=== PATIENT | female | born 1955 | race African-American/Black ===

== ENCOUNTER 2017-08-09 23:00 | Emergency (ER) | END 2017-08-10 01:19 | disposition home or self-care (01) ==

== ENCOUNTER 2017-10-25 22:38 | Emergency (ER) | END 2017-10-26 00:13 | disposition home or self-care (01) ==

== ENCOUNTER 2017-11-24 13:13 | Emergency (ER) | END 2017-11-24 13:58 | disposition home or self-care (01) ==

== ENCOUNTER 2018-01-17 14:24 | Emergency (ER) | END 2018-01-17 16:35 | disposition home or self-care (01) ==

== ENCOUNTER 2018-02-09 15:03 | Emergency (ER) | END 2018-02-09 16:56 | disposition home or self-care (01) ==

== ENCOUNTER 2018-04-30 01:14 | Emergency (ER) | payer OTHER ==
[~2018-04-30] VITALS: Wt 49.4 kg
[~2018-04-30 01:14] MED LIST: ASPI-817 PO; CEPH-443 PO; CLOT10TR11 ORAL; DOCU-144 PO; HC30CR25 TOP; IBUP-1561 PO; NAPR-985 PO; NORVIR; ONDA4TAB14 PO; PRAV40TA76 PO; [UNRECOGNIZED DRUG - OTHER]; [UNRECOGNIZED DRUG - OTHER]
[2018-04-30 01:20] VITALS: BP 114/73; PULSE 84; RESP 18
[2018-04-30] MEDS ORDERED: IBUP-1542 PO (03:52)
--- NOTE | 2018-05-08 00:08 | ERD ---
ER Documentation Chief Complaint Chief Complaint BODY ACHES, DIARRHEA X'S 3 DAYS HPI This is a 63-year-old antibiotics diarrhea for 3 days. Denies fevers or chills. Diarrhea was nonbloody 4-5 episodes of watery in nature. She also complains of diffuse body aches. Denies fevers or chills. Denies any other current complaints. Denies sick contacts. ROS All systems reviewed and are negative except as per history of present illness. Medications Home Meds Active Scripts Ibuprofen* (Motrin*) 600 Mg Tab, 600 MG PO Q6, #30 TAB Prov:RANDAL OSORIO 04/30/18 Naproxen* (Naprosyn*) 500 Mg Tablet, 500 MG PO BID PRN for PAIN AND/OR INFLAMMATION, #30 TAB Prov:REED LIN APNS 02/09/18 Cephalexin* (Keflex*) 500 Mg Capsule, 500 MG PO QID for 7 Days, CAP Prov:JOSE ANGEL SOUSA MD 01/17/18 Hydrocortisone* Topical (Hydrocortisone* Topical) 2.5%-28.3 Gm Cream..g., 1 APPLIC TOP BID for 7 Days, #1 TUB Prov:JOSE ANGEL SOUSA MD 11/24/17 Ibuprofen* (Motrin*) 400 Mg Tab, 400 MG PO Q6, #30 TAB Prov:RANDAL SHERMAN PA-C 10/25/17 Hydrocortisone* Topical (Hydrocortisone* Topical) 2.5%-28.3 Gm Cream..g., 1 APPLIC TOP BID, #1 TUB Prov:RANDAL SHERMAN PA-C 10/25/17 Ondansetron (Ondansetron Odt) 4 Mg Tab.rapdis, 4 MG PO Q6H PRN for NAUSEA AND/OR VOMITING, #10 TAB Prov:RANDAL OSORIO 08/29/17 Docusate Sodium* (Colace*) 100 Mg Capsule, 100 MG PO TID, #30 CAP Prov:RANDAL OSORIO 08/29/17 Clotrimazole* (Mycelex Pita*) 10 Mg Troc, 10 MG ORAL 5 TIMES DAILY for 10 Days, #40 LOI Prov:EDY JOYCE 08/10/17 Reported Medications [Trivacay] No Conflict Check 12/03/14 [Norvir] No Conflict Check 12/03/14 [Presiata] No Conflict Check 12/03/14 Aspirin* (Aspirin* EC) 81 Mg Tablet.dr, 81 MG PO DAILY, TAB 12/03/14 Pravastatin Sodium* (Pravastatin Sodium*) 40 Mg Tablet, 40 MG PO HS, TAB 12/03/14 Allergies Allergies: Coded Allergies: codeine (Verified Adverse Reaction, Intermediate, RESTLESSNESS FEET AND LEGS, 12/03/14) PMhx/Soc History of Surgery: Yes (bladder and bunion surgery, CYST REMOVAL ) Anesthesia Reaction: No Hx Neurological Disorder: No Hx Respiratory Disorders: No Hx Cardiac Disorders: No Hx Psychiatric Problems: Yes (SCHIZO AFFECTIVE AND BIPOLAR DISORDER) Hx Miscellaneous Medical Probl: Yes (dm,migraine headaches,lymphiocytic colitis, HIV +) Hx Alcohol Use: No Hx Substance Use: No Hx Tobacco Use: No Smoking Status: Former smoker Physical Exam Physical Exam Const: No acute distress Head: Atraumatic Eyes: Normal Conjunctiva ENT: Normal External Ears, Nose and Mouth. Neck: Full range of motion. No meningismus. Resp: Clear to auscultation bilaterally Cardio: Regular rate and rhythm, no murmurs Abd: Soft, non tender, non distended. Normal bowel sounds Skin: No petechiae or rashes Back: No midline or flank tenderness Ext: No cyanosis, or edema Neur: Awake and alert Psych: Normal Mood and Affect Results 24 hrs Laboratory Tests Test 04/30/18 02:30 04/30/18 02:33 Sodium Level 144 mmol/L Potassium Level 4.4 mmol/L Chloride Level 98 mmol/L Carbon Dioxide Level 37 mmol/L Anion Gap 9 Blood Urea Nitrogen 16 mg/dl Creatinine 1.01 mg/dl Est Glomerular Filtrat Rate mL/min > 60 mL/min Glucose Level 86 mg/dl Calcium Level 10.7 mg/dl Total Bilirubin 0.1 mg/dl Direct Bilirubin 0.00 mg/dl Indirect Bilirubin 0.1 mg/dl Aspartate Amino Transf (AST/SGOT) 43 IU/L Alanine Aminotransferase (ALT/SGPT) 38 IU/L Alkaline Phosphatase 104 IU/L Troponin I < 0.012 ng/ml Total Protein 8.0 g/dl Albumin 4.4 g/dl Globulin 3.60 g/dl Albumin/Globulin Ratio 1.22 White Blood Count 7.8 10^3/ul Red Blood Count 4.14 10^6/ul Hemoglobin 12.0 g/dl Hematocrit 37.4 % Mean Corpuscular Volume 90.3 fl Mean Corpuscular Hemoglobin 29.0 pg Mean Corpuscular Hemoglobin Concent 32.1 g/dl Red Cell Distribution Width 13.3 % Platelet Count 267 10^3/UL Mean Platelet Volume 10.8 fl Immature Granulocytes % 0.300 % Neutrophils % 47.0 % Lymphocytes % 38.7 % Monocytes % 9.3 % Eosinophils % 4.1 % Basophils % 0.6 % Nucleated Red Blood Cells % 0.0 /100WBC Immature Granulocytes # 0.020 10^3/ul Neutrophils # 3.7 10^3/ul Lymphocytes # 3.0 10^3/ul Monocytes # 0.7 10^3/ul Eosinophils # 0.3 10^3/ul Basophils # 0.1 10^3/ul Nucleated Red Blood Cells # 0.0 10^3/ul Procedures/MDM EKG: Rate/Rhythm: [Normal Sinus Rhythm] QRS, ST, T-waves: [No changes consistent w/ acute ischemia] Impression: [No evidence of ischemia or arrhythmia] Chest X-ray 1V Interpreted by me: Soft Tissue: No acute abnormalities Bones: No acute abnormalities Mediastinum/Cardiac Silhouette/Lungs: [No acute abnormalities] Medical decision making: She symptomology consistent with viral syndrome. No evidence of cardiac disease. At this point well-appearing. Hydrated here. Stable for outpatient management. Departure Diagnosis: Primary Impression: Influenza-like symptoms Condition: Stable Patient Instructions: Chest Pain, Uncertain Cause RANDAL OSORIO May 08, 2018 00:08
== END 2018-04-30 06:48 | disposition home or self-care (01) ==
LOC: FTE 01:14
DX: R19.7 Diarrhea, unspecified (principal); E11.9 Type 2 diabetes mellitus without complications; R07.9 Chest pain, unspecified; Z21 Asymptomatic human immunodeficiency virus [HIV] infection status; Z79.82 Long term (current) use of aspirin; Z87.891 Personal history of nicotine dependence
CPT/HCPCS: 36415; 71045; 80053; 84484; 85025; 93005

== ENCOUNTER 2018-07-15 14:29 | Emergency (ER) | payer OTHER ==
[~2018-07-15] VITALS: Wt 56.0 kg
[~2018-07-15 14:29] MED LIST changes: +IBUP-1542 PO
[2018-07-15 14:33] VITALS: BP 117/70; PULSE 90; RESP 18
[2018-07-15] MEDS ORDERED: BENZ1TAB7 PO (15:41)
[2018-07-15] MEDS ORDERED: LANS30CA47 PO (15:41)
[2018-07-15] MEDS ORDERED: MIRT30TA5 PO (15:41)
--- NOTE | 2018-07-15 16:10 | ERD ---
ER Documentation Chief Complaint Chief Complaint REFILL OF MEDS HPI This is a 63-year-old patient who arrives from her behavioral health clinic with request for refill of her medications as her psychiatrist was not in today. States that she gets a regular psychological care for schizoaffective disorder, bipolar, depression. She also has primary care physician, Dr. Moises Gee who does not refill her psych medications. Patient is alert and oriented, appropriate, cooperative, denies SI or having exacerbation of her psychiatric symptoms. States the medications help keep her from having crisis situations and she is concerned that if she has to continue to wait for her medication she may have behavioral difficulties. States she ran out of her medications 4 days ago. Benztropine 1 mg BID, Lansoprazole 30 mg QD, Mirtazapine 15 mg QHS ROS All systems reviewed and are negative except as per history of present illness. Medications Home Meds Active Scripts Mirtazapine* (Mirtazapine*) 30 Mg Tablet, 15 MG PO QHS for 30 Days, #30 TAB Prov:ISABELL LUTHER NP 07/15/18 Lansoprazole* (Prevacid*) 30 Mg Capsule.dr, 30 MG PO DAILY for 30 Days, #30 Prov:ISABELL LUTHER NP 07/15/18 Benztropine Mesylate* (Cogentin*) 1 Mg Tab, 1 MG PO BID for 30 Days, #30 TAB Prov:ISABELL LUTHER NP 07/15/18 Ibuprofen* (Motrin*) 600 Mg Tab, 600 MG PO Q6, #30 TAB Prov:RANDAL OSORIO 04/30/18 Naproxen* (Naprosyn*) 500 Mg Tablet, 500 MG PO BID PRN for PAIN AND/OR INFLAMMATION, #30 TAB Prov:REED LIN NP 02/09/18 Cephalexin* (Keflex*) 500 Mg Capsule, 500 MG PO QID for 7 Days, CAP Prov:JOS EANGEL SOUSA MD 01/17/18 Hydrocortisone* Topical (Hydrocortisone* Topical) 2.5%-28.3 Gm Cream..g., 1 APPLIC TOP BID for 7 Days, #1 TUB Prov:JOSE ANGEL SOUSA MD 11/24/17 Ibuprofen* (Motrin*) 400 Mg Tab, 400 MG PO Q6, #30 TAB Prov:RANDAL SHERMAN PA-C 10/25/17 Hydrocortisone* Topical (Hydrocortisone* Topical) 2.5%-28.3 Gm Cream..g., 1 APPLIC TOP BID, #1 TUB Prov:RANDAL SHERMAN PA-C 10/25/17 Ondansetron (Ondansetron Odt) 4 Mg Tab.rapdis, 4 MG PO Q6H PRN for NAUSEA AND/OR VOMITING, #10 TAB Prov:RANDAL OSORIO S. 08/29/17 Docusate Sodium* (Colace*) 100 Mg Capsule, 100 MG PO TID, #30 CAP Prov:RANDAL OSORIO S. 08/29/17 Clotrimazole* (Mycelex Pita*) 10 Mg Troc, 10 MG ORAL 5 TIMES DAILY for 10 Days, #40 LOI Prov:MARIA DEL CARMENEDY 08/10/17 Reported Medications [Trivacay] No Conflict Check 12/03/14 [Norvir] No Conflict Check 12/03/14 [Presiata] No Conflict Check 12/03/14 Aspirin* (Aspirin* EC) 81 Mg Tablet.dr, 81 MG PO DAILY, TAB 12/03/14 Pravastatin Sodium* (Pravastatin Sodium*) 40 Mg Tablet, 40 MG PO HS, TAB 12/03/14 Allergies Allergies: Coded Allergies: codeine (Verified Adverse Reaction, Intermediate, RESTLESSNESS FEET AND LEGS, 12/03/14) PMhx/Soc History of Surgery: Yes (bladder and bunion surgery, CYST REMOVAL ) Anesthesia Reaction: No Hx Neurological Disorder: No Hx Respiratory Disorders: No Hx Cardiac Disorders: No Hx Psychiatric Problems: Yes (SCHIZO AFFECTIVE AND BIPOLAR DISORDER) Hx Miscellaneous Medical Probl: Yes (dm,migraine headaches,lymphiocytic colitis, HIV +) Hx Alcohol Use: No Hx Substance Use: No Hx Tobacco Use: No Physical Exam Vitals Vital Signs Date Temp Pulse Resp B/P (MAP) Pulse Ox O2 O2 Flow FiO2 Time Delivery Rate 07/15/18 98.1 90 18 117/70 99 14:33 (86) Physical Exam Const: No acute distress Head: Atraumatic Eyes: Normal Conjunctiva ENT: Normal External Ears, Nose and Mouth. Neck: Full range of motion. No meningismus. Resp: Clear to auscultation bilaterally Cardio: Regular rate and rhythm, no murmurs Abd: Soft, non tender, non distended. Normal bowel sounds Skin: No petechiae or rashes Back: No midline or flank tenderness Ext: No cyanosis, or edema Neur: Awake and alert Psych: Normal Mood and Affect Procedures/MDM This 63-year-old patient who presents with medication refill request remains alert, appropriate, cooperative during exam and interview. Patient appears to be reliable to follow-up with her behavioral health and psychiatrist. Patient denies any psychiatric disturbance at this time, no hallucinations, no delusions, no thoughts of harming herself or others. Patient is otherwise ambulatory and able to perform self-care. Patient verbalizes plan to follow-up with primary care physicians. Departure Diagnosis: Primary Impression: Depression Condition: Stable Patient Instructions: Recognizing Depression in Children and Teens Additional Instructions: Thank you very much for allowing us to participate in your care. Your health and safety is our top priority at [facility]. Call your primary care doctor TOMORROW for an appointment during the next 2-4 d ays and bring all the information and medications prescribed. Have prescriptions filled and follow precisely the directions on the label. If the symptoms get worse and your provider is unavailable, return to the Emergency Department immediately. FOLLOW-UP WITH YOUR PSYCHIATRIST FOR FUTURE MEDICATION REFILLS. IT IS IMPORTANT FOR YOU TO HAVE CLOSE FOLLOW-UP WHILE ON THESE MEDICATIONS. DO NOT PLAN ON USING THE EMERGENCY ROOM FOR REGULAR MEDICATION REFILLS. YOUR DOCTORS NEED TO KNOW HOW MANY REFILLS YOU ARE RECEIVING, DOSING, AND YOUR RESPONSE TO YOUR MEDICATIONS. ISABELL LUTHER NP Jul 15, 2018 16:10
== END 2018-07-15 16:19 | disposition home or self-care (01) ==
LOC: FTE 14:29
DX: F32.9 Major depressive disorder, single episode, unspecified (principal); E11.9 Type 2 diabetes mellitus without complications; Z79.82 Long term (current) use of aspirin
CPT/HCPCS: 99283

== ENCOUNTER 2018-11-03 16:51 | Emergency (ER) | payer OTHER ==
[~2018-11-03] VITALS: Ht 165.1 cm; Wt 52.0 kg
[~2018-11-03 16:51] MED LIST changes: +BENZ1TAB7 PO; +LANS30CA47 PO; +MIRT30TA5 PO
[2018-11-03 17:03] VITALS: BP 146/84; PULSE 81; RESP 18; Ht 165.1 cm; Wt 52.0 kg
[2018-11-03] MEDS ORDERED: TRAM50TA2 PO (18:00)
--- NOTE | 2018-11-03 18:12 | ERD ---
ER Documentation Chief Complaint Chief Complaint left ankle and leg pain x 4 weeks HPI 63-year-old female presents with pain in the left ankle worsening over the last month. She feels like it is not straight deviating. She denies any history of known injury although she states that she may sleepwalk. Pain is primarily on the medial joint line of the left ankle. She denies additional complaints. Does have a history of diabetes. ROS All systems reviewed and are negative except as per history of present illness. Medications Home Meds Active Scripts Tramadol HCl (Tramadol HCl) 50 Mg Tablet, 50 MG PO Q4 PRN for PAIN, #20 TAB Prov:JOSE ANGEL SOUSA MD 11/03/18 Mirtazapine* (Mirtazapine*) 30 Mg Tablet, 15 MG PO QHS for 30 Days, #30 TAB Prov:ISABELL LUTHER NP 07/15/18 Lansoprazole* (Prevacid*) 30 Mg Capsule.dr, 30 MG PO DAILY for 30 Days, #30 Prov:ISABELL LUTHER NP 07/15/18 Benztropine Mesylate* (Cogentin*) 1 Mg Tab, 1 MG PO BID for 30 Days, #30 TAB Prov:ISABELL LUTEHR NP 07/15/18 Ibuprofen* (Motrin*) 600 Mg Tab, 600 MG PO Q6, #30 TAB Prov:RANDAL OSORIO 04/30/18 Naproxen* (Naprosyn*) 500 Mg Tablet, 500 MG PO BID PRN for PAIN AND/OR INFLAMMATION, #30 TAB Prov:REED LIN NP 02/09/18 Cephalexin* (Keflex*) 500 Mg Capsule, 500 MG PO QID for 7 Days, CAP Prov:JOSE ANGEL SOUSA MD 01/17/18 Hydrocortisone* Topical (Hydrocortisone* Topical) 2.5%-28.3 Gm Cream..g., 1 YUSUF LIC TOP BID for 7 Days, #1 TUB Prov:JOSE ANGEL SOUSA MD 11/24/17 Ibuprofen* (Motrin*) 400 Mg Tab, 400 MG PO Q6, #30 TAB Prov:RANDAL SHERMAN PA-C 10/25/17 Hydrocortisone* Topical (Hydrocortisone* Topical) 2.5%-28.3 Gm Cream..g., 1 APPLIC TOP BID, #1 TUB Prov:LANERANDAL Renae PA-C 10/25/17 Ondansetron (Ondansetron Odt) 4 Mg Tab.rapdis, 4 MG PO Q6H PRN for NAUSEA AND/OR VOMITING, #10 TAB Prov:RANDAL OSORIO. 08/29/17 Docusate Sodium* (Colace*) 100 Mg Capsule, 100 MG PO TID, #30 CAP Prov:RANDAL OSORIO S. 08/29/17 Clotrimazole* (Mycelex Pita*) 10 Mg Troc, 10 MG ORAL 5 TIMES DAILY for 10 Days, #40 LOI Prov:MARIA DEL CARMEN,MELODY 08/10/17 Reported Medications [Trivacay] No Conflict Check 12/03/14 [Norvir] No Conflict Check 12/03/14 [Presiata] No Conflict Check 12/03/14 Aspirin* (Aspirin* EC) 81 Mg Tablet.dr, 81 MG PO DAILY, TAB 12/03/14 Pravastatin Sodium* (Pravastatin Sodium*) 40 Mg Tablet, 40 MG PO HS, TAB 12/03/14 Allergies Allergies: Coded Allergies: codeine (Verified Adverse Reaction, Intermediate, RESTLESSNESS FEET AND LEGS, 12/03/14) PMhx/Soc History of Surgery: Yes (bladder and bunion surgery, CYST REMOVAL ) Anesthesia Reaction: No Hx Neurological Disorder: No Hx Respiratory Disorders: No Hx Cardiac Disorders: No Hx Psychiatric Problems: Yes (SCHIZO AFFECTIVE AND BIPOLAR DISORDER) Hx Miscellaneous Medical Probl: Yes (dm,migraine headaches,lymphiocytic colitis, HIV +) Hx Alcohol Use: No Hx Substance Use: No Hx Tobacco Use: No FmHx Family History: No diabetes, No coronary disease, No other Physical Exam Vitals Vital Signs Date Temp Pulse Resp B/P (MAP) Pulse Ox O2 O2 Flow FiO2 Time Delivery Rate 11/03/18 97.8 81 18 146/84 98 17:03 (104) Physical Exam Const: No acute distress Head: Atraumatic Eyes: Normal Conjunctiva ENT: Normal External Ears, Nose and Mouth. Neck: Full range of motion. No meningismus. Resp: Clear to auscultation bilaterally Cardio: Regular rate and rhythm, no murmurs Abd: Soft, non tender, non distended. Normal bowel sounds Skin: No petechiae or rashes Back: No midline or flank tenderness Ext: No cyanosis, or edema and minimal tenderness in the left medial joint line slight valgus deformity of the joint. No induration, warmth, erythema, effusion, significant deformity. Neur: Awake and alert Psych: Normal Mood and Affect Procedures/MDM PROCEDURE: XR left Ankle. CLINICAL INDICATION: Left ankle pain. TECHNIQUE: Three views of the left ankle were performed. COMPARISON: 02/09/2018. FINDINGS: There has been no significant change. No evidence for acute fracture. No evidence for bone destructive or erosive change. There is a chronic osteochondral defect of the medial talus dome seen as subcortical lucency. There is post-traumatic ossification adjacent to the distal aspect of the medial malleolus. Findings can be associated impingement. IMPRESSION: 1. No acute change identified and no evidence for acute fracture. 2. 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 RPTAT: XX .Tay Womack MD, MD Date Time Electronically viewed and signed by .Tay Womack MD, MD on 11/03/2018 17:56 .T/ Presents with left ankle pain likely due to posttraumatic findings on x-ray w ithout acute fracture dislocation or signs of septic arthritis, ischemia, deficits, additional concerning signs or symptoms. Patient is placed in a left ankle Mik bandage and was neurovascular intact after Mik bandage. She will treated with continuation of ibuprofen, tramadol, and recommendation for primary care and orthopedic follow-up and return precautions. The patient was stable with no new complaints during the ER course. Clinically, there is no current evidence to suggest meningitis, sepsis, acute abdomen, pneumonia, stroke, acute coronary syndrome, pulmonary embolism, aortic dissection or any other emergent condition appearing to require further evaluation or hospitalization. Patient counseled regarding my diagnostic impression and care plan. Prior to discharge all questions answered. Pt agrees with treatment plan and understands strict return precautions. Pt is instructed to follow up with primary care provider within 24-48 hours. Precautionary instructions provided including instructions to return to the ER if not improving or for any worsening or changing symptoms or concerns. Disclaimer: Inadvertent spelling and grammatical errors are likely due to EHR/dictation software use and do not reflect on the overall quality of patient care. Also, please note that the electronic time recorded on this note does not necessarily reflect the actual time of the patient encounter. Departure Diagnosis: Primary Impression: Ankle pain Chronicity: chronic Laterality: left Qualified Codes: M25.572 - Pain in left ankle and joints of left foot; G89.29 - Other chronic pain Condition: Stable Patient Instructions: Sprain, Ankle, With X-Ray Referrals: NASH STEIN MD (PCP) CARI PITTS MD Additional Instructions: X-ray shows chronic changes but nothing acute. Recommend see orthopedist for further evaluation and treatment. Continue ibuprofen at home. JOSE ANGEL SOUSA MD Nov 03, 2018 18:11
== END 2018-11-03 18:11 | disposition home or self-care (01) ==
LOC: E/R 16:51
DX: M25.572 Pain in left ankle and joints of left foot (principal); E11.9 Type 2 diabetes mellitus without complications; Z21 Asymptomatic human immunodeficiency virus [HIV] infection status; Z79.82 Long term (current) use of aspirin
CPT/HCPCS: 73610; Z7502

== ENCOUNTER 2018-12-10 11:59 | Emergency (ER) | payer OTHER ==
[~2018-12-10] VITALS: Ht 165.1 cm; Wt 52.3 kg
[~2018-12-10 11:59] MED LIST changes: +FAMO-96 PO; +ONDA4TAB13 PO; +TRAM50TA2 PO
[2018-12-10 12:02] VITALS: BP 117/62; PULSE 77; RESP 20; Ht 165.1 cm; Wt 52.3 kg
[2018-12-10] MEDS ORDERED: KETOROLAC 30 MG INJ IM STA (12:56)
== END 2018-12-10 14:11 | disposition home or self-care (01) ==
LOC: FTE 11:59
DX: N39.0 Urinary tract infection, site not specified (principal); I10 Essential (primary) hypertension; E11.9 Type 2 diabetes mellitus without complications; Z79.82 Long term (current) use of aspirin; Z21 Asymptomatic human immunodeficiency virus [HIV] infection status
CPT/HCPCS: 81001; 96372; J1885; Z7502; 81003

== ENCOUNTER 2018-12-19 11:03 | Emergency (ER) | payer OTHER ==
[~2018-12-19] VITALS: Ht 165.1 cm; Wt 52.7 kg
[2018-12-19 11:30] VITALS: BP 119/89; PULSE 85; RESP 16; Ht 165.1 cm; Wt 52.7 kg
[2018-12-19] MEDS ORDERED: ONDANSETRON (ODT) 4 MG TAB ODT STA (13:02)
[2018-12-19] MEDS ORDERED: KETOROLAC 15 MG INJ IM STA (13:02)
[2018-12-19] MEDS ORDERED: FAMOTIDINE 20 MG TAB PO ONE (13:30)
[2018-12-19] MEDS ORDERED: LIDOCAINE/MYLANTA 40 ML BTL PO ONE (13:30)
== END 2018-12-19 13:56 | disposition home or self-care (01) ==
LOC: FTE 11:03
DX: M79.605 Pain in left leg (principal); R10.9 Unspecified abdominal pain; E11.9 Type 2 diabetes mellitus without complications; Z21 Asymptomatic human immunodeficiency virus [HIV] infection status; Z79.82 Long term (current) use of aspirin
CPT/HCPCS: 82962; 96372; J1885; Z7502; Z7610

== ENCOUNTER 2019-02-03 16:56 | Emergency (ER) | payer OTHER ==
[~2019-02-03] VITALS: Ht 162.6 cm; Wt 51.8 kg
[~2019-02-03 16:56] MED LIST changes: +HYDR-4011 PO
[2019-02-03 17:02] VITALS: BP 116/56; PULSE 74; RESP 20; Ht 162.6 cm; Wt 51.8 kg
[2019-02-03] MEDS ORDERED: HYDROCODONE/APAP (5/325) TAB PO ONE (18:00)
== END 2019-02-03 18:46 | disposition home or self-care (01) ==
LOC: FTE 16:56
DX: M25.512 Pain in left shoulder (principal); E11.9 Type 2 diabetes mellitus without complications; Z21 Asymptomatic human immunodeficiency virus [HIV] infection status; Z79.82 Long term (current) use of aspirin
CPT/HCPCS: 73030; Z7502; Z7610